=== PATIENT | male | born 1980 | race Two or more races ===

== ENCOUNTER 2025-06-27 11:27 | Emergency (ER) | payer OTHER ==
[~2025-06-27] VITALS: Ht 177.8 cm; Wt 98.5 kg
[2025-06-27 11:35] VITALS: TEMP 98.2
[2025-06-27 12:15] LABS: PLATELET COUNT (AUTO) 170 K/uL (150-450); RED BLOOD CELL COUNT(AUTO) 5.19 MIL/uL (4.50-5.90); RED CELL DISTRIBUTION WIDTH 13.5 % (11.5-14.5); WHITE BLOOD COUNT (AUTO) 3.3 K/uL (4.5-11.0)
[2025-06-27 12:24] LABS: CALCIUM, TOTAL 8.5 mg/dL (8.8-10.5); CREATININE 0.87 mg/dL (0.60-1.30); GLOMERULAR FILTR. RATE CALC > 60 mL/min (>60); GLUCOSE,RANDOM 89 mg/dL (70-110); SODIUM SERUM 139 mmol/L (136-145); UREA NITROGEN, BLOOD 11 mg/dL (7-18)
[2025-06-27 13:54] LABS: COVID AG,FIA SOURCE NASAL SWAB
[2025-06-27 14:35] LABS: SARS-COV2 (COVID) ANTIGEN,FIA Negative (Negative)
[2025-06-27 14:37] LABS: INFLUENZA TYPE A NEGATIVE FOR TYPE A (NEGATIVE); INFLUENZA TYPE B NEGATIVE FOR TYPE B (NEGATIVE)
[2025-06-27 15:29] VITALS: BP 116/72; PULSE 88; RESP 16; O2SAT 98
== END 2025-06-27 15:52 ==
LOC: EMS 11:27
DX: M79.605 Pain in left leg (principal); J06.9 Acute upper respiratory infection, unspecified; B97.89 Other viral agents as the cause of diseases classified elsewhere; F41.9 Anxiety disorder, unspecified; Z79.01 Long term (current) use of anticoagulants; Z98.890 Other specified postprocedural states; Z20.822 Contact with and (suspected) exposure to COVID-19
CPT/HCPCS: 71045; 80048; 85025; 85610; 87804; 93970; 99284; 36415-L1; 36415-TC